=== PATIENT | female | born 1945 | race Caucasian/White ===

== ENCOUNTER 2021-07-11 16:42 | Inpatient (IN) | payer MEDICARE ==
[~2021-07-11] VITALS: Ht 167.6 cm; Wt 62.1 kg
--- NOTE | ~2021-07-11 | EMS ---
[address] [address] EMS Patient Care Report Name: ALBIN SAM Room #: 353-P ADM IN M.R.#: [id number] Admission: 07/11/21 Attend Phys: James Juan MD Discharge: Date of : 43 Report #: [id number] THIS REPORT FOR: //name// Report Transmitted: 07/14/2021 07:32 EMS Care Summary [place], [place]/[facility] Incident [id number] @ 07/11/2021 16:00 Incident Location [address] [place] [address] Patient ALBIN SAM Female, 75 Years 1945 Patient Address [address] [place] [address] Patient History None Reported, Patient Allergies No known allergies, Patient Medications None Reported, Chief Complaint chills/body pain/cough Disposition Transported No Lights/[place] Dispatch Reason Breathing Problem Transported To [facility] Narrative pt found lying in bed, a&o. she states she has felt sick for past 10 days w/ chills, cough, SOB, fatigue, body pain, and back pain. she does not know if [facility] [address] [place] [address] EMS Patient Care Report Name: ALBIN SAM Room #: 353-P ADM IN M.R.#: [id number] Admission: 07/11/21 Attend Phys: James Juan MD Discharge: Date of : 43 Report #: [id number] she came into contact w/ anyone who has Covid but she is not vaccinated. pt req [facility]- [facility]. pt to cot, VS, /. transport w/o incident, report to staff. Initial Vitals @16:25R: 22,SpO2: 94, @PTAP: 86,R: 22,BP: 126/70,Pain: 8/10,GCS: 15,Temp: 98.7F,SpO2: 90,Revised Trauma: 12, Assessments @16:12MENTAL:No Abnormalities,SKIN:No Abnormalities,HEENT:Head/Face: No Abnormalities,LUNG SOUNDS:ABDOMEN:PELVIS//GI:EXTREMITIES:Right Arm: Other,Left Leg: Other,Left Arm: Other,Right Leg: Other,PULSE:NEURO: Impression COVID-19 - Suspected - no known exposure Procedures @16:12 ALS Assessment Response: Unchanged @16:16 Stretcher Response: Unchanged @16:23 Oxygen FlowRate: 2 Device: Nasal Cannula (NC) Response: ImprovedSucceeded Timeline COMPLEX MANAGER,BP: 126/70 M,PULSE: 86,RR: 22 R,SPO2: 90 Ox,ETCO2: ,BG: ,PAIN: 8,GCS: 15, 15:57,Call Received 15:57,Dispatch Notified 16:00,Dispatched 16:01,En Route 16:07,On Scene 16:12,At Patient 16:12,ALS Assessment,Response: Unchanged 16:16,Stretcher,Response: Unchanged 16:23,Oxygen FlowRate: 2 Device: Nasal Cannula (NC) Response: ImprovedSucceeded, 16:23,Depart Scene 16:25,BP: / M,PULSE: ,RR: 22 R,SPO2: 94 Ox,ETCO2: ,BG: ,PAIN: ,GCS: , 16:37,At Destination 17:10,Call Closed Disclaimer v1.1 Copyright 2020 [employer] This EMS Care Summary contains data elements from the applicable legal record (which may be displayed differently). It is designed to provide pertinent information for the following purposes: continuity of care, clinical quality, and state data reporting. The complete legal record is available to ED staff [facility] [address] [place] [address] EMS Patient Care Report Name: ALBIN SAM Room #: 353-P ADM IN ..#: [id number] Admission: 07/11/21 Attend Phys: James Juan MD Discharge: Date of : 43 Report #: [id number] and administrators of the receiving hospital in [employer]'s Patient Tracker. All data is provided "as is."
--- NOTE | ~2021-07-11 | EMS ---
[address] [address] EMS Patient Care Report Name: ALBIN SAM Room #: REG ANASTASIYA Onofre#: [id number] Admission: 07/11/21 Attend Phys: Discharge: Date of : 43 Report #: [id number] THIS REPORT FOR: //name// Report Transmitted: 07/11/2021 17:49 EMS Care Summary [place], [place]/[facility] Incident [id number] @ 07/11/2021 16:00 Incident Location [address] [place] [address] Patient ALBIN SAM Female, 75 Years 1945 Patient Address [address] [place] [address] Patient History None Reported, Patient Allergies No known allergies, Patient Medications None Reported, Chief Complaint chills/body pain/cough Disposition Transported No Lights/[place] Dispatch Reason Breathing Problem Transported To [facility] Narrative pt found lying in bed, a&o. she states she has felt sick for past 10 days w/ chills, cough, SOB, fatigue, body pain, and back pain. she does not know if [facility] [address] [place] [address] EMS Patient Care Report Name: ALBIN SAM Room #: REG Dennis.#: [id number] Admission: 07/11/21 Attend Phys: Discharge: Date of : 43 Report #: [id number] she came into contact w/ anyone who has Covid but she is not vaccinated. pt [facility]- [facility]. pt to cot, VS, /. transport w/o incident, report to staff. Initial Vitals @16:25R: 22,SpO2: 94, @PTAP: 86,R: 22,BP: 126/70,Pain: 8/10,GCS: 15,Temp: 98.7F,SpO2: 90,Revised Trauma: 12, Assessments @16:12MENTAL:No Abnormalities,SKIN:No Abnormalities,HEENT:Head/Face: No Abnormalities,LUNG SOUNDS:ABDOMEN:PELVIS//GI:EXTREMITIES:Right Arm: Other,Left Leg: Other,Left Arm: Other,Right Leg: Other,PULSE:NEURO: Impression COVID-19 - Suspected - no known exposure Procedures @16:12 ALS Assessment Response: Unchanged @16:16 Stretcher Response: Unchanged @16:23 Oxygen FlowRate: 2 Device: Nasal Cannula (NC) Response: ImprovedSucceeded Timeline IN FLIGHT REFUELING OPERATOR,BP: 126/70 M,PULSE: 86,RR: 22 R,SPO2: 90 Ox,ETCO2: ,BG: ,PAIN: 8,GCS: 15, 15:57,Call Received 15:57,Dispatch Notified 16:00,Dispatched 16:01,En Route 16:07,On Scene 16:12,At Patient 16:12,ALS Assessment,Response: Unchanged 16:16,Stretcher,Response: Unchanged 16:23,Oxygen FlowRate: 2 Device: Nasal Cannula (NC) Response: ImprovedSucceeded, 16:23,Depart Scene 16:25,BP: / M,PULSE: ,RR: 22 R,SPO2: 94 Ox,ETCO2: ,BG: ,PAIN: ,GCS: , 16:37,At Destination 17:10,Call Closed Disclaimer v1.1 Copyright 2020 [employer] This EMS Care Summary contains data elements from the applicable legal record (which may be displayed differently). It is designed to provide pertinent information for the following purposes: continuity of care, clinical quality, and state data reporting. The complete legal record is available to ED staff [address] [address] EMS Patient Care Report Name: ALBIN SAM Room #: REG ANASTASIYA Onofre#: [id number] Admission: 07/11/21 Attend Phys: Discharge: Date of : 43 Report #: [id number] and administrators of the receiving hospital in [employer]'s Patient Tracker. All data is provided "as is."
[2021-07-11 16:43] VITALS: BP 120/58
[2021-07-11 17:36] LABS: ABSOLUTE NEUTROPHILS 5.8 thou/uL (1.4-8.2); BASOPHILS 0.3 % (0.0-2.0); HEMATOCRIT 38.5 % (37.0-47.0); HEMOGLOBIN 13.3 gm/dL (12.0-15.0); LYMPHOCYTES 13.1 % (24.0-44.0); MCH 31.4 pg (26.0-34.0); MCHC 34.6 g/dL (28.0-37.0); MCV 90.9 fL (80.0-100.0); MONOCYTES 6.2 % (1.0-8.0); PLATELET COUNT 154 thou/uL (150-400); POLYS 80.4 % (36.0-66.0); RBC 4.24 mil/uL (4.20-5.00); RDW 13.1 % (10.5-14.5); WBC 7.3 thou/uL (4.0-11.0)
[2021-07-11 17:45] LABS: CALCIUM 8.6 mg/dL (8.5-10.1); CREATININE 1.1 mg/dL (0.6-1.0); POTASSIUM 3.4 mmol/L (3.5-5.1)
[2021-07-11 17:54] LABS: ALBUMIN 3.4 g/dL (3.4-5.0); TOTAL BILIRUBIN 0.6 mg/dL (0.2-1.0); TOTAL PROTEIN 8.1 g/dL (6.4-8.2)
--- NOTE | 2021-07-12 08:00 | EKG ---
[place] [address] [place] [facility] [place] [address] ELECTROCARDIOGRAM REPORT Name: ALBIN SAM Room #: 170-7 ADM IN M.R.#: [id number] Admission: 07/11/21 Attend Phys: James Juan MD Discharge: Date of : 43 Report #: [id number] [facility] ED Test Date: 2021-07-11 Test Time: 17:28:22 Pat Name: ALBIN SAM Department: Room: 170 Gender: F Bench Manager: STEVEN : 1945 Requested By: Melissa Miller Order Number: [id number] MD: Rey Reyes Measurements Intervals [place] Rate: 91 P: 29 GA: 174 QRS: 26 QRSD: 85 T: 64 QT: 380 QTc: 468 Interpretive Statements Sinus rhythm Probable left atrial enlargement No previous ECG available for comparison Electronically Signed On 07-12-2021 8:00:35 EGG FACTORY WORKER by Rey Reyes [email or web address] <ELECTRONICALLY SIGNED> By: Rey Reyes MD, [facility] 07/12/21 0800 1728 1728 Rey Reyes MD, FACC /EPI
[2021-07-12 08:04] VITALS: BP 101/57
[2021-07-12 08:18] VITALS: BP 118/54
[2021-07-12 08:54] VITALS: BP 112/60
[2021-07-12 11:50] VITALS: BP 115/69
--- NOTE | 2021-07-12 13:30 | NUR ---
ADMISSION NOTE: PT ADMISSTED IN ROOM 353, ALERT AND ORIENTED X4, CURRENTLY ON 2L, SOB WITH EXERTION. RESTAURANT BUSSER PLACED ON PT, SINUS RYTHM. ASSESSMENT AND ADMISSION COMPLETED. SKIN INTACT. UP TO BATHROOM OR BSC WITH 1 ASSIST. FALL AND ENHANCED PRECAUTIONS IN PLACE. MED REC NOT COMPLETED BCOS PT STATED SHE DOESNT TAKE ANY MEDS AT HOME, ONLY TAKE VITAMINS AND WASNT SURE THE DOSE. WILL CONTINUE TO MONITOR.
[2021-07-12 16:01] VITALS: BP 114/65
[2021-07-12 19:58] VITALS: BP 117/64
--- NOTE | 2021-07-12 20:49 | NUR ---
PT REMAINS IN ISOLATION. RESTING IN BED WATCHING TV. SMILING TALKATIVE. O2 PER NC. LUNGS DIMINISHED IN BASES, LOOSE COUGH. IV MEDS. BSC, PT ENCOURAGED TO CALL FOR ASSISTANCE, USES WALKER. PT DISCUSSED HOW HER LFA IS EDEMATOUS FROM IV INFILTRATION DURING CT. PT DELCINED HS SNACK.
[2021-07-13 04:20] VITALS: BP 97/51
[2021-07-13 08:17] VITALS: BP 95/50
[2021-07-13 09:41] VITALS: BP 95/50
[2021-07-13 11:23] LABS: ALBUMIN 2.8 g/dL (3.4-5.0); CALCIUM 8.6 mg/dL (8.5-10.1); CREATININE 1.3 mg/dL (0.6-1.0); POTASSIUM 3.2 mmol/L (3.5-5.1); TOTAL BILIRUBIN 0.3 mg/dL (0.2-1.0); TOTAL PROTEIN 7.2 g/dL (6.4-8.2)
[2021-07-13 11:33] VITALS: BP 93/43
--- NOTE | 2021-07-13 12:04 | HC ---
[facility] [place] [address] [place] [address] CONSULTATION Name: ALBIN SAM Room #: 353-P ADM IN M.R.#: [id number] Admission: 07/11/21 Attend Phys: James Juan MD Discharge: Date of : 43 Report #: [id number] THIS REPORT FOR: cc: FAM - Family physician unknown FAM - Family physician unknown Shamir Sullivan MD ~ DATE OF SERVICE: 07/12/2021 INFECTIOUS DISEASE CONSULTATION ATTENDING PHYSICIAN: Dr. James Juan. REASON FOR EVALUATION: COVID-19 infection, complicated by pneumonitis. HISTORY OF PRESENT ILLNESS: Chart reviewed. The patient examined. This is a 75-year-old woman without significant medical history, reportedly IBS, who presented to the Emergency Room with complaints of progressive dyspnea and had cough with progressive weakness and fatigue, diminished appetite; she in part attributed to some diarrhea. She was noted to be febrile. She notes this has been going on for the last several days without resolution. Testing confirmed positive COVID-19 antigen, influenza antigen was negative. Showed elevated D-dimer of ____, lactic acid 1.5, procalcitonin 0.18. Blood cultures sterile thus far. Sed rate was elevated at 83. She was initially found to be febrile to 102. She subsequently is now normothermic. She is generally lucid. She is currently maintained on supplemental oxygen at 2 liters. She was empirically started on piperacillin/tazobactam. ALLERGIES: None known. MEDICATIONS: Currently include enoxaparin, Zosyn, famotidine, dexamethasone, zinc, ascorbic acid, p.r.n. analgesics, antiemetics. PAST MEDICAL HISTORY: As described above; IBS, previous cholecystectomy, left wrist surgery. SOCIAL HISTORY: Chronic smoker, reports 10 cigarettes per day; although, has quit since the onset of the illness. No ethanol, no illicit drug use. FAMILY HISTORY: Noncontributory. REVIEW OF SYSTEMS: Otherwise unremarkable with the exception of the above. PHYSICAL EXAMINATION: GENERAL: She appears somewhat chronically ill, undernourished. She is pleasant, co-operative, in ffpk-cm-hrelushw distress. She is lucid. VITAL SIGNS: Temperature 97, pulse 69, respirations 20, blood pressure 112/60. [address] [address] CONSULTATION Name: ALBIN SAM Room #: 353-P [facility] IN M.R.#: [id number] Admission: 07/11/21 Attend Phys: James Juan MD Discharge: Date of : 43 Report #: [id number] SKIN: Warm, dry, no rashes. HEENT: Normocephalic. Extraocular muscles intact. Nasal cannula in place. NECK: Supple. LUNGS: Diminished breath sounds, also has some bibasilar crackles. HEART: Regular. I do not appreciate a murmur. ABDOMEN: Slightly distended, soft, nontender. EXTREMITIES: No cyanosis. GENITOURINARY AND RECTAL: Deferred. LABORATORY DATA: As described above. Sed rate of 83. Procalcitonin of 0.42. Ferritin of 2927. Blood cultures are sterile thus far. CTA chest PE protocol: As noted above. Electrolytes: Sodium 132, potassium 3.4, chloride 97, bicarbonate is 22, anion gap of 13, BUN and creatinine 18 and 1.1, glucose of 128. LFTs: Unremarkable. Albumin of 3.4, total protein 8.1, estimated GFR of 48. ASSESSMENT AND PLAN: COVID-19 infection, complicated by pneumonitis. It is more of a consolidative process. There is question of a secondary bacterial pneumonia. I think it is reasonable to continue empiric therapy, currently on Zosyn. We will add remdesivir, certainly at risk. She is probably sicker than she appears on paper. In addition to corticosteroids and vitamins, oxygen support as required and see how she does clinically, add incentive spirometry. <ELECTRONICALLY SIGNED> By: Shamir Sullivan MD 07/13/21 1204 [id number] Shamir Sullivan MD /nt
--- NOTE | 2021-07-13 13:24 | NUR ---
Assess d/t high risk screen and consult for poor appetite. She is currently admitted for covid, on isolation. Reported on intake with decreased appetite recently, x 1 week with onset of covid symptoms. Minimal PMH and includes only IBS with no home medications noted outside of vitamins. Currently on vitamin pack, ABT, steroid and remdesivir. UBW 135 lb. Currently 132 lb. Intakes since admit on heart healthy diet showed 50%-60%-80% at meals 07/12. Noted with hypokalemia, on K replacement. Will start Ensure daily r/t loss of appetite recently and possible wt loss of 2% x 1 wk. Follow weight and intake trends. Low nutrition risk with interventions initiated.
--- NOTE | 2021-07-13 13:29 | NUR ---
INITIAL ASSESSMENT: Received consult. NOEMI reviewed chart and spoke with nursing and attending physician. Pt was admitted from home due to COVID pneumonia. Pt placed in Enhanced Isolation. Pt has not received a COVID vaccination. Pt is afebrile and on 2L of O2. Pt is on IV abx and Remdesivir. NOEMI spoke with pt via phone. Introduced role of SW. Pt is alert/orientated x 4. Pt reports she lives in a ground level apt with her . Prior to admission, pt was independent with ADLs. No use of DME. No hx of services or post-acute placement. Pt states her PCP is at [facility]. Pt is unable to recall name of her PCP, but she states she will follow up with her after discharge. PT/OT evals ordered. Plan is for pt to discharge home when medically stable. NOEMI is following to assist as needed with discharge planning.
[2021-07-13 15:38] VITALS: BP 107/49
--- NOTE | 2021-07-13 16:24 | NUR ---
SASKIA IS ALERT AND OREINTED X 4 THIS SHIFT. PATIENT HAS SPENT THE MAJORITY OF THIS SHIFT UP IN HER RECLINER WATCHING TV. ESTUARDO TRANSFERES WITH ONE ASSIST ON STANDBY. PATIENT'S IV IN HER RIGHT FOREARM FELL OUT OUT THIS AM AND AN IV WAS PLACED BY THE IV TEAM IN PATIENTS LEFT FOREARM. IV LINE IS PATENT. PATIENT WILL CONTINUE TO BE MONITORED.
[2021-07-13 20:00] VITALS: BP 113/58
[2021-07-14 04:40] VITALS: BP 106/39
--- NOTE | 2021-07-14 05:51 | NUR ---
PT IS A&OX4, ABLE TO COMMUNICATE WANTS AND NEEDS TO STAFF APPROPRIATELY. PT REMAINS IN ISOLATION AFTER TESTING POSITIVE FOR COVID-19. SHE HAS BEEN AFEBRILE, DOES HAVE AN OCCASIONAL COUGH. SHE IS CONCERNED ABOUT HER WHO WENT TO THE ER LAST NIGHT; SHE IS CONCERNED ABOUT WHO WILL TAKE CARE OF THEM AT DISCHARGE. SHE IS UP TO BR WITH WALKER AND SBA, STEADY GAIT AND STRONG TRANSFER NOTED. POTASSIUM FROM 07/13 NOTED TO BE LOW AT 3.2, RECEIVED ORDER FROM WING MAILER MACHINE OPERATOR FOR ONE TIME REPLACEMENT DOSE OF 40MEQ, GIVEN A HS. PT HAS BEEN SR/SB ON THE MONITOR. WILL CONTINUE TO OBSERVE FOR CHANGES
[2021-07-14 07:12] VITALS: BP 107/48
[2021-07-14 07:17] LABS: ALBUMIN 2.6 g/dL (3.4-5.0); CALCIUM 8.2 mg/dL (8.5-10.1); POTASSIUM 3.8 mmol/L (3.5-5.1); TOTAL BILIRUBIN 0.4 mg/dL (0.2-1.0); TOTAL PROTEIN 6.7 g/dL (6.4-8.2)
[2021-07-14 11:28] VITALS: BP 115/61
--- NOTE | 2021-07-14 12:38 | NUR ---
SW reviewed chart and spoke with nursing and attending physician. Pt remains in Enhanced Isolation due to COVID. Pt is afebrile and on 2L of O2. Pt is on IV abx and Remdesivir. PT/OT ordered. Pt's spouse has been admitted to the hospital due to COVID. NOEMI is following to assist as needed with discharge planning.
[2021-07-14 16:16] VITALS: BP 121/67
--- NOTE | 2021-07-14 17:37 | NUR ---
Patient is alert and oriented x4. Patient is up with a gait belt and walker and has a steady gait. Patient is currently on 1L of oxygen and her oxygenation is at 96%. Patient makes no complaints of feeling short of breath. Patient has an IV in her left forearm. IV line is patent. Patient recieved both ordered antibiotics this shift. Patient is currently on enhanced precautions. Patient has a cough. Patient has reported no other symptoms this shift. Patient will continue to be monitored.
[2021-07-14 19:32] VITALS: BP 118/57
[2021-07-15 04:58] VITALS: BP 126/88
[2021-07-15 07:36] VITALS: BP 141/60
[2021-07-15 07:50] LABS: ALBUMIN 2.9 g/dL (3.4-5.0); CALCIUM 8.5 mg/dL (8.5-10.1); CREATININE 0.9 mg/dL (0.6-1.0); TOTAL BILIRUBIN 0.4 mg/dL (0.2-1.0); TOTAL PROTEIN 7.1 g/dL (6.4-8.2)
--- NOTE | 2021-07-15 11:30 | NUR ---
NOEMI reviewed chart and spoke with nursing and attending physician. Pt remains in Enhanced Isolation due to COVID. Pt is progressing towards goals for discharge and may discharge home tomorrow after last dose of Remdesivir. Pt is afebrile and on room air. NOEMI spoke with pt via phone to provide update and discuss discharge plan. Pt's spouse is also currently hospitalized at [facility] with COVID. Pt states she is aware of her discharge plan. SW discussed potential discharge needs. Pt declines referral for services. Pt states she feels ready to discharge home. Pt will follow up with her PCP at [facility]. Pt states she will have transportation home when discharged. SW informed pt that her may also be ready for discharge home over the weekend. NOEMI updated attending physician. No discharge needs identified at this time. NOEMI is available to assist should needs arise.
[2021-07-15 15:28] VITALS: BP 136/62
--- NOTE | 2021-07-15 15:58 | NUR ---
assumed care of pt at 0700. pt aox4. no acute distress. room air. up ad rasheeda w/ steady gait. moderate appetite. iv saline locked. likely d/c tomorrow.
[2021-07-15 20:08] VITALS: BP 136/71
[2021-07-16 05:41] VITALS: BP 129/58
--- NOTE | 2021-07-16 05:45 | NUR ---
Patient has progressed towards outcome goals. Vitals and rhythm stable. Oxygenation optimal on room air. Up adlib without difficulty. Denies pain. Discharge plans for today.
[2021-07-16 05:55] LABS: ALBUMIN 2.6 g/dL (3.4-5.0); CALCIUM 8.4 mg/dL (8.5-10.1); CREATININE 0.8 mg/dL (0.6-1.0); POTASSIUM 3.9 mmol/L (3.5-5.1); TOTAL BILIRUBIN 0.4 mg/dL (0.2-1.0); TOTAL PROTEIN 6.6 g/dL (6.4-8.2)
[2021-07-16 08:58] VITALS: BP 139/74
[2021-07-16] MEDS ORDERED: AMOX TR-K CLV1 EAC4 PO (11:57)
[2021-07-16] MEDS ORDERED: PREDNISONE 20 M20 M1 PO (11:57)
[2021-07-16] MEDS ORDERED: ZINC SULFATE50 MG PO (11:57)
[2021-07-16] MEDS ORDERED: VITAMIN D325 MC2 PO (11:57)
[2021-07-16] MEDS ORDERED: VITAMIN C1000 MG PO (11:57)
[2021-07-16] MEDS ORDERED: ACETAMINOPHEN325 M1 PO (11:57)
[2021-07-16 12:35] VITALS: BP 139/74
--- NOTE | 2021-07-16 15:39 | NUR ---
assumed care of pt at 0700. weaned to room air. vitals stable. up ad rasheeda. stable for discharge. voicing no concerns or questions regarding d/c instructions.
== END 2021-07-16 17:23 | disposition home or self-care (01) | DRG 177 ==
LOC: ER 16:42 → EROBS 22:15 → 3W 22:15
PROVIDERS: Nurse Practitioner Family; Specialist; ADMIT Hospitalist; ATTEND Hospitalist
PROC: XW033E5 Introduction of Remdesivir Anti-infective into Peripheral Vein, Percutaneous Approach, New Technology Group 5 (ICD-10-PCS; principal; 2021-07-12)
DX: U07.1 COVID-19 (principal); J96.01 Acute respiratory failure with hypoxia; J12.82 Pneumonia due to coronavirus disease 2019; F17.210 Nicotine dependence, cigarettes, uncomplicated; E87.6 Hypokalemia; J43.9 Emphysema, unspecified; R53.81 Other malaise; Z79.899 Other long term (current) drug therapy; Z90.49 Acquired absence of other specified parts of digestive tract; Z71.6 Tobacco abuse counseling
CPT/HCPCS: 10779